=== PATIENT | male | born 1985 | race Caucasian/White ===

== ENCOUNTER 2018-12-14 23:28 | Emergency (ER) | payer OTHER ==
[2018-12-14 23:53] VITALS: BP 155/94; PULSE 66; TEMP 98.2; BMI 30.7
--- NOTE | 2018-12-15 01:31 | PDOC ---
*Physical Exam - Vital Signs Last Vital Signs Temp Pulse Resp BP Pulse Ox 98.2 F 66 18 155/94 100 12/14/18 23:33 12/14/18 23:33 12/14/18 23:33 12/14/18 23:33 12/14/18 23:33 Medical Decision Making - Medical Decision Making 12/15/18 01:31 Patient seen by the advanced practice provider under my direct supervision. Ancillary testing reviewed as necessary. I agree with plan as outlined by the advanced practice provider. *DC/Admit/Observation/Transfer Diagnosis at time of Disposition: Tympanic membrane rupture Qualifiers: Laterality: left Qualified Code(s): H72.92 - Unspecified perforation of tympanic membrane, left ear - Discharge Dispostion Disposition: HOME Condition at time of disposition: Stable - Prescriptions Prescriptions: Ofloxacin Otic [Floxin Otic -] 5 drop BID #1 bottle - Referrals Referrals: Itzel Keating MD [Primary Care Provider] - 2 Days Chad Mcgraw MD [Staff Physician] - Call tomorrow - Patient Instructions Printed Discharge Instructions: DI for Tympanic Membrane Perforation-Adult Additional Instructions: Thank you for choosing [facility]. It was a pleasure taking care of you. You were noted to have perforated your left eardrum Use the prescribed eardrops in your left ear - put 5 drops in the ear two times a day for 5 days Follow-up with the ENT doctor Avoid getting water in the ear as it may increase chance of infection When showering, you can use a cotton ball covered in Vaseline on the outside of ear canal to keep it dry Return to the Emergency Department if your symptoms worsen or persist or have other concerning symptoms. - Post Discharge Activity
--- NOTE | 2018-12-15 02:18 | PDOC ---
History of Present Illness - General Chief Complaint: Pain Stated Complaint: ITCH IN LFT EAR Time Seen by Provider: 12/15/18 01:28 History Source: Patient Exam Limitations: No Limitations Past History - Past Medical History Allergies/Adverse Reactions: Allergies Allergy/AdvReac Type Severity Reaction Status Date / Time No Known Allergies Allergy Verified 12/14/18 23:35 Home Medications: Ambulatory Orders Ofloxacin Otic [Floxin Otic -] 5 drop BID #1 bottle 12/15/18 COPD: No - Suicide/Smoking/Psychosocial Hx Smoking History: Never smoked Have you smoked in the past 12 months: No Information on smoking cessation initiated: No Hx Alcohol Use: No Drug/Substance Use Hx: No *Physical Exam - Vital Signs Last Vital Signs Temp Pulse Resp BP Pulse Ox 98.2 F 66 18 155/94 100 12/14/18 23:33 12/14/18 23:33 12/14/18 23:33 12/14/18 23:33 12/14/18 23:33 - Physical Exam General Appearance: No: Apparent Distress HEENT: positive: Pharynx Normal, Other (L ear with TM rupture, dried blood in canal, no ear canal narrowing, no pain on pulling pinna; R ear unremarkable). negative: Nasal Congestion, Rhinorrhea Respiratory/Chest: positive: Lungs Clear, Normal Breath Sounds. negative: Respiratory Distress Cardiovascular: positive: Regular Rhythm, Regular Rate, S1, S2. negative: Murmur Integumentary: positive: Normal Color Neurologic: positive: Fully Oriented, Alert, Normal Mood/Affect Moderate Sedation - Procedure Monitoring Vital Signs: Procedure Monitoring Vital Signs Temperature 98.2 F 12/14/18 23:33 Pulse Rate 66 12/14/18 23:33 Respiratory Rate 18 12/14/18 23:33 Blood Pressure 155/94 12/14/18 23:33 O2 Sat by Pulse Oximetry (%) 100 12/14/18 23:33 Medical Decision Making - Medical Decision Making 33 yo M with no sig pmh presents with L ear pain x 2 days, worse today. Then later noticed bloody D/C from L ear. Now is no longer having pain in ear. Denies trauma or putting anything in his ear. Mentions he had a cold a few days ago, but that is gone now. Denies hearing loss, tinnitus, congestion, rhinorrhea , sore throat, fever. L ear TM rupture (unclear cause) Will start on Ofloxacin ear drops, refer to ENT D/W Dr. Russell 12/15/18 02:15 *DC/Admit/Observation/Transfer Diagnosis at time of Disposition: Tympanic membrane rupture Qualifiers: Laterality: left Qualified Code(s): H72.92 - Unspecified perforation of tympanic membrane, left ear - Discharge Dispostion Disposition: HOME Condition at time of disposition: Stable Decision to Admit order: No - Prescriptions Prescriptions: Ofloxacin Otic [Floxin Otic -] 5 drop BID #1 bottle - Referrals Referrals: Itzel Keating MD [Primary Care Provider] - 2 Days Chad Mcgraw MD [Staff Physician] - Call tomorrow - Patient Instructions Printed Discharge Instructions: DI for Tympanic Membrane Perforation-Adult Additional Instructions: Thank you for choosing [facility]. It was a pleasure taking care of you. You were noted to have perforated your left eardrum Use the prescribed eardrops in your left ear - put 5 drops in the ear two times a day for 5 days Follow-up with the ENT doctor Avoid getting water in the ear as it may increase chance of infection When showering, you can use a cotton ball covered in Vaseline on the outside of ear canal to keep it dry Return to the Emergency Department if your symptoms worsen or persist or have other concerning symptoms. - Post Discharge Activity
== END 2018-12-15 04:25 | disposition home or self-care (01) ==
LOC: JER 23:28
DX: H72.92 Unspecified perforation of tympanic membrane, left ear (principal)
CPT/HCPCS: 99281-25